=== PATIENT | female | born 1990 | race Caucasian/White ===

== ENCOUNTER 2025-02-07 17:13 | Emergency (ER) | payer SELFPAY | END 2025-02-07 18:10 | disposition left against medical advice (07) | LOC: JD.ED 17:13 | DX: S00.03XA Contusion of scalp, initial encounter (principal); F19.10 Other psychoactive substance abuse, uncomplicated; X58.XXXA Exposure to other specified factors, initial encounter | CPT/HCPCS: 73090-26-RT; 73090-RT; 73120-26-RT; 73120-RT; 99283; 99284 ==